=== PATIENT | male | born 1960 | race Caucasian/White ===

== ENCOUNTER → 2023-08-03 10:41 | Outpatient (REF) | payer BC, SELFPAY ==
[2023-08-03 11:36] LABS: % Basophils 0.9 % (0-2); % Eosinophils 1.7 % (0-6); % Immature Granulocytes 0.9 % (0-0.5); % Lymphocytes 21.7 % (20.5-51.1); % Monocytes 10.4 % (1.7-9.3); % Neutrophils 64.4 % (42.2-75.2); Absolute Basophils 0.1 10^3/uL (0-0.2); Absolute Eosinophils 0.2 10^3/uL (0-0.7); Absolute Immature Granulocytes 0.1 10^3/uL (0-0.05); Absolute Lymphocytes 1.9 10^3/uL (1.2-3.4); Absolute Monocytes 0.9 10^3/uL (0.1-0.6); Absolute Neutrophils 5.6 10^3/uL (1.4-6.5); Hematocrit 48.1 % (39.0-52.0); Hemoglobin 15.8 g/dL (13.0-18.0); Mean Corp Hgb Conc. 32.8 g/dL (33.0-37.0); Mean Corpuscular Volume 88.3 fL (80.0-94.0); Mean Platelet Volume 11.1 fL (7.4-10.4); Nucleated Red Blood Cells % 0 % (-); Platelet Count 213 10^3/uL (130-400); Red Blood Cell Count 5.45 10^6/uL (4.70-6.10); Red Cell Dist. Width 14.6 % (11.5-14.5); White Blood Cell Count 8.7 10^3/uL (4.8-10.8)
[2023-08-03 12:29] LABS: Glycohemoglobin (HgbA1c) 7.1 % (4.0-5.6)
[2023-08-03 12:31] LABS: ALT (SGPT) 61 U/L (0-50); AST (SGOT) 23 U/L (17-59); Albumin 4.6 g/dl (3.5-5.0); Alkaline Phosphatase 94 U/L (38-126); Blood Urea Nitrogen 18 mg/dl (9-20); Calcium 9.9 mg/dl (8.4-10.2); Carbon Dioxide 29 mmol/L (22-30); Chloride 102 mmol/L (98-107); Glucose 133 mg/dl (70-99); HDL Cholesterol 41 mg/dl; LDL Cholesterol, Calculated 57 mg/dl; Potassium 4.6 mmol/L (3.5-5.1); Sodium 138 mmol/L (135-145); Total Bilirubin 1.1 mg/dl (0.2-1.3); Total Cholesterol 134 mg/dl (50-199); Total Protein 7.5 g/dl (6.3-8.2); Triglyceride 184 mg/dl (10-149); Very Low Density Lipoprotein 36 mg/dl (0-30); eGFR 56.13
== END ==
LOC: REG 10:41
PROVIDERS: ATTENDING PHYSICIAN Internal Medicine; FAMILY PHYSICIAN Internal Medicine
DX: I25.10 Atherosclerotic heart disease of native coronary artery without angina pectoris (principal); I50.32 Chronic diastolic (congestive) heart failure
CPT/HCPCS: 36415; 80053; 80061; 83036; 85025

== ENCOUNTER → 2023-08-15 07:30 | Outpatient (REF) | payer BC, SELFPAY | LOC: RAD 07:30 | PROVIDERS: ATTENDING PHYSICIAN Surgery Vascular Surgery; FAMILY PHYSICIAN Internal Medicine | DX: I73.9 Peripheral vascular disease, unspecified (principal) | CPT/HCPCS: 93922; 93925 ==

== ENCOUNTER → 2024-08-05 09:37 | Outpatient (REF) | payer MEDICARE, OTHER, SELFPAY ==
[2024-08-05 11:42] LABS: ALT (SGPT) 44 U/L (0-50); AST (SGOT) 17 U/L (17-59); Albumin 4.7 g/dl (3.5-5.0); Alkaline Phosphatase 82 U/L (38-126); Blood Urea Nitrogen 29 mg/dl (9-20); Calcium 10.1 mg/dl (8.4-10.2); Carbon Dioxide 30 mmol/L (22-30); Chloride 100 mmol/L (98-107); Glucose 138 mg/dl (70-99); Potassium 4.7 mmol/L (3.5-5.1); Sodium 137 mmol/L (135-145); Total Bilirubin 1.3 mg/dl (0.2-1.3); eGFR > 60.00
== END ==
LOC: REG 09:37
PROVIDERS: ATTENDING PHYSICIAN Internal Medicine; FAMILY PHYSICIAN Internal Medicine
DX: K76.9 Liver disease, unspecified (principal)
CPT/HCPCS: 36415; 80053

== ENCOUNTER → 2024-08-21 07:51 | Outpatient (REF) | payer MEDICARE, OTHER, SELFPAY | LOC: DHVS 07:51 | PROVIDERS: ATTENDING PHYSICIAN Surgery Vascular Surgery | DX: I73.9 Peripheral vascular disease, unspecified (principal) | CPT/HCPCS: 93922; 93925 ==

== ENCOUNTER 2024-08-26 06:22 | Day surgery (SDC) | payer MEDICARE, OTHER, SELFPAY | END 2024-08-26 11:41 | disposition home or self-care (01) | LOC: GI 06:22 | PROVIDERS: ATTENDING PHYSICIAN Internal Medicine | DX: Z12.11 Encounter for screening for malignant neoplasm of colon (principal); K64.9 Unspecified hemorrhoids; K57.30 Diverticulosis of large intestine without perforation or abscess without bleeding; D12.2 Benign neoplasm of ascending colon; K63.5 Polyp of colon | CPT/HCPCS: 45385; 45380; 88305 ==

== ENCOUNTER → 2024-10-17 06:46 | Outpatient (REF) | payer MEDICARE, OTHER, SELFPAY ==
[2024-10-17 08:34] LABS: HDL Cholesterol 38 mg/dl; LDL Cholesterol, Calculated 61 mg/dl; Total Cholesterol 137 mg/dl (50-199); Triglyceride 193 mg/dl (10-149); Very Low Density Lipoprotein 38 mg/dl (0-30)
== END ==
LOC: REG 06:46
PROVIDERS: ATTENDING PHYSICIAN Internal Medicine
DX: I25.10 Atherosclerotic heart disease of native coronary artery without angina pectoris (principal); I73.9 Peripheral vascular disease, unspecified; R73.03 Prediabetes
CPT/HCPCS: 36415; 80061

== ENCOUNTER → 2024-11-04 08:26 | Outpatient (REF) | payer MEDICARE, OTHER, SELFPAY ==
[2024-11-04 10:54] LABS: Glycohemoglobin (HgbA1c) 6.8 % (4.0-5.6)
== END ==
LOC: RCS 08:26
PROVIDERS: ATTENDING PHYSICIAN Internal Medicine; FAMILY PHYSICIAN Internal Medicine
DX: I25.10 Atherosclerotic heart disease of native coronary artery without angina pectoris (principal); I50.32 Chronic diastolic (congestive) heart failure; I73.9 Peripheral vascular disease, unspecified; R73.03 Prediabetes
CPT/HCPCS: 36415; 83036; 93306; 93356